=== PATIENT | female | born 1955 | race Caucasian/White ===

== ENCOUNTER → 2016-04-30 | Outpatient (CLI) | payer OTHER ==
[~2016-04-30] MED LIST: ALTACE10 MG PO; FENOFIBRATE160 MG PO; FLAGYL500 MG PO; SULFAMETHOXAZO1 EACH PO; SULINDAC150 MG PO
== END | disposition short-term general hospital (02) ==
LOC: CLPULM 11:47
DX: I71.2 Thoracic aortic aneurysm, without rupture (principal); I10 Essential (primary) hypertension; E66.9 Obesity, unspecified; G47.33 Obstructive sleep apnea (adult) (pediatric); Z98.890 Other specified postprocedural states

== ENCOUNTER 2016-06-06 10:58 | Day surgery (SDC) | payer OTHER | END 2016-06-06 14:30 | disposition short-term general hospital (02) | LOC: SURGOP 10:58 | PROC: 0DBB8ZX Excision of Ileum, Via Natural or Artificial Opening Endoscopic, Diagnostic (ICD-10-PCS; principal; 2016-06-06) | PROC: 0DBF8ZX Excision of Right Large Intestine, Via Natural or Artificial Opening Endoscopic, Diagnostic (ICD-10-PCS; 2016-06-06) | PROC: 0DBG8ZX Excision of Left Large Intestine, Via Natural or Artificial Opening Endoscopic, Diagnostic (ICD-10-PCS; 2016-06-06) | DX: K52.9 Noninfective gastroenteritis and colitis, unspecified (principal); K62.89 Other specified diseases of anus and rectum; K57.30 Diverticulosis of large intestine without perforation or abscess without bleeding; D64.9 Anemia, unspecified; I10 Essential (primary) hypertension; E78.5 Hyperlipidemia, unspecified; Z79.899 Other long term (current) drug therapy; Z90.49 Acquired absence of other specified parts of digestive tract; Z98.890 Other specified postprocedural states | CPT/HCPCS: J2175; J2250 ==

== ENCOUNTER → 2016-07-23 | Outpatient (CLI) | payer OTHER | END | disposition short-term general hospital (02) | LOC: CLCARD 11:11 → CLPULM 11:11 → CLCARD 12:38 | DX: G47.33 Obstructive sleep apnea (adult) (pediatric) (principal); I71.2 Thoracic aortic aneurysm, without rupture; I10 Essential (primary) hypertension; E66.9 Obesity, unspecified; E78.1 Pure hyperglyceridemia; Z87.09 Personal history of other diseases of the respiratory system; Z90.49 Acquired absence of other specified parts of digestive tract ==